=== PATIENT | female | born 1960 | race Caucasian/White ===

== ENCOUNTER 2021-05-30 13:06 | Emergency (ER) | payer BC ==
[2021-05-30] MEDS ORDERED: Hydrochlorothiazide 25 MG Tab PO ONE (14:14)
--- NOTE | 2021-05-30 14:19 | EDM.PDOC ---
ED HPI GENERAL MEDICAL PROBLEM - General Chief Complaint: Cardiovascular Problem Stated Complaint: BLOOD PRESSURE IS HIGH Time Seen by Provider: 05/30/21 14:00 Source of Information: Reports: Patient, Family, RN Notes Reviewed History Limitations: Reports: No Limitations - History of Present Illness INITIAL COMMENTS - FREE TEXT/NARRATIVE: 60-year-old female presents emergency department today concerned about blood pressure. She has been taking her blood pressure at home systolic is been around 200 he has been dealing with blood pressure issues working with her primary care over the last 5weeks did have good blood pressure control when she was on combination of lisinopril hydrochlorothiazide unfortunately she developed an angioedema secondary to the lisinopril. She is currently on combination metoprolol verapamil. - Related Data Allergies Allergy/AdvReac Type Severity Reaction Status Date / Time lisinopril Allergy Intermediate Swollen Verified 05/30/21 14:38 Tongue shellfish derived Allergy Intermediate Facial Verified 05/30/21 14:38 Swelling amlodipine [From Norvasc] Allergy Edema Verified 05/30/21 13:43 morphine Allergy Itching Verified 05/30/21 13:43 Home Meds: Home Meds Cholecalciferol (Vitamin D3) [Vitamin D] 2,000 units PO DAILY 05/30/21 [History] Levothyroxine Sodium [Synthroid] 1 cap PO DAILY 05/30/21 [History] Metoprolol Succinate [Toprol Xl] 150 mg PO DAILY 05/30/21 [History] Omeprazole Magnesium [Prilosec Otc] 1 cap PO DAILY 05/30/21 [History] Potassium Chloride [Klor-Con M20] 20 meq PO BID 05/30/21 [History] Verapamil HCl [Verapamil ER] 1 cap PO DAILY 05/30/21 [History] metFORMIN [Glucophage] 1,000 mg PO DAILY 05/30/21 [History] Past Medical History Cardiovascular History: Reports: Hypertension Gastrointestinal History: Reports: GERD 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: Musculoskeletal History: Reports: Arthritis Endocrine/Metabolic History: Reports: Hypoparathyroidism - Infectious Disease History Infectious Disease History: Reports: Chicken Pox, Mumps Social & Family History - Tobacco Use Tobacco Use Status *Q: Former Tobacco User Years of Tobacco use: 35 Packs/Tins Daily: 1 Used Tobacco, but Quit: Yes Month/Year Tobacco Last Used: 08/2009 - Caffeine Use Caffeine Use: Reports: Coffee - Recreational Drug Use Recreational Drug Use: No ED ROS GENERAL - Review of Systems Review Of Systems: See Below Constitutional: Reports: No Symptoms HEENT: Reports: No Symptoms Respiratory: Reports: No Symptoms Cardiovascular: Reports: Chest Pain GI/Abdominal: Reports: No Symptoms ED EXAM, GENERAL - Physical Exam Exam: See Below Exam Limited By: No Limitations General Appearance: Alert, WD/WN, No Apparent Distress Respiratory/Chest: No Respiratory Distress, Lungs Clear, Normal Breath Sounds, No Accessory Muscle Use, Chest Non-Tender Cardiovascular: Regular Rate, Rhythm, No Murmur GI/Abdominal: Soft, Non-Tender Extremities: No Pedal Edema #1 Interpretation EKG Date: 05/30/21 Time: 14:35 Rhythm: NSR [place]: Normal P-Wave: Present QRS: Normal ST-T: Normal QT: Normal Comparison: NA - No Prior EKG Course - Vital Signs Last Recorded V/S: Last Vital Signs Temp 97.6 F 05/30/21 13:59 Pulse 66 05/30/21 14:29 Resp 16 05/30/21 14:00 BP 155/82 H 05/30/21 14:29 Pulse Ox 96 05/30/21 14:29 - Orders/Labs/Meds Orders: Active Orders 24 hr Category Date Time Status Cardiac Monitoring [RC] .As Directed Care 05/30/21 14:13 Active EKG Documentation Completion [RC] ASDIRECTED Care 05/30/21 14:13 Active EKG 12 Lead [EK] Stat Ther 05/30/21 14:13 Ordered Labs: Laboratory Tests 05/30/21 05/30/21 Range/Units 14:25 14:25 WBC 6.9 (4.5-11.0) K/uL RBC 4.40 (3.30-5.50) M/uL Hgb 13.3 (12.0-15.0) g/dL Hct 39.3 (36.0-48.0) % MCV 89 (80-98) fL MCH 30 (27-31) pg MCHC 34 (32-36) % Plt Count 188 (150-400) K/uL Neut % (Auto) 49.2 (36-66) % Lymph % (Auto) 32.5 (24-44) % [place] % (Auto) 14.6 H (2-6) % Eos % (Auto) 2.5 (2-4) % Baso % (Auto) 1.2 H (0-1) % Sodium 137 L (140-148) mmol/L Potassium 3.6 (3.6-5.2) mmol/L Chloride 96 L (100-108) mmol/L Carbon Dioxide 33 H (21-32) mmol/L Anion Gap 11.6 (5.0-14.0) mmol/L BUN 7 (7-18) mg/dL Creatinine 0.8 (0.6-1.0) mg/dL Est Cr Clr Drug Dosing 53.04 mL/min Estimated GFR (MDRD) > 60 (>60) Glucose 102 (74-106) mg/dL Calcium 8.7 (8.5-10.1) mg/dL Troponin I < 0.017 (0.000-0.056) ng/mL Meds: Medications Discontinued Medications Generic Name Dose Route Start Last Admin Trade Name Freq PRN Reason Stop Dose Admin Hydrochlorothiazide 25 mg 05/30/21 14:14 05/30/21 14:41 Hydrochlorothiazide 25 Mg Tab PO 05/30/21 14:15 25 mg ONETIME ONE Administration Departure - Departure Time of Disposition: 15:04 Disposition: Home, Self-Care 01 Condition: Fair Clinical Impression: Essential hypertension Instructions: Preventing Hypertension, Hypertension, Adult, [id number] Referrals: PCP,None [Primary Care Provider] - Forms: ED Department Discharge Additional Instructions: Restart hydrochlorothiazide, please follow-up with your primary care next week for further evaluation Sepsis Event Note (ED) - Evaluation Sepsis Screening Result: No Definite Risk - Focused Exam Vital Signs: Vital Signs Temp Pulse Resp BP Pulse Ox 05/30/21 14:29 66 155/82 H 96 05/30/21 14:00 72 16 169/92 H 97 05/30/21 13:59 97.6 F 76 16 199/91 H 96 05/30/21 13:37 97.6 F 76 16 199/91 H 96 - My Orders Last 24 Hours: My Active Orders 05/30/21 14:13 Cardiac Monitoring [RC] .As Directed EKG Documentation Completion [RC] ASDIRECTED EKG 12 Lead [EK] Stat - Assessment/Plan Last 24 Hours: My Active Orders 05/30/21 14:13 Cardiac Monitoring [RC] .As Directed EKG Documentation Completion [RC] ASDIRECTED EKG 12 Lead [EK] Stat Plan: Assessment Acuity = acute Site and laterality = essential hypertension Etiology = poor control Manifestations = none Location of injury = Home Lab values = CBC BMP troponin normal limits EKG demonstrates sinus rhythm Plan Restart hydrochlorothiazide 25 mg provided in the ED did provide some control however suboptimal she does have this medication at home she is can follow-up with the primary care next week This note was dictated using [employer] voice recognition software please call with any questions on syntax or grammar.
== END 2021-05-30 15:14 | disposition home or self-care (01) ==
LOC: JP.ED 13:06
DX: I10 Essential (primary) hypertension (principal); K21.9 Gastro-esophageal reflux disease without esophagitis; Z72.0 Tobacco use; Z88.5 Allergy status to narcotic agent; Z91.013 Allergy to seafood; Z88.8 Allergy status to other drugs, medicaments and biological substances; Z79.84 Long term (current) use of oral hypoglycemic drugs; Z79.899 Other long term (current) drug therapy
CPT/HCPCS: 36415; 80048; 84484; 85025; 93005; 99283; A9270